=== PATIENT | male | born 1960 | race Caucasian/White ===

== ENCOUNTER 2016-09-20 11:14 | Observation (INO) ==
[2016-09-20] MEDS ORDERED: *HR* Morphine 2 MG/ML SYRINGE IVP ONE (12:18)
[2016-09-20] MEDS ORDERED: Ondansetron 4 MG/2 ML VIAL IVP ONE (12:18)
[2016-09-20 12:36] LABS: Basophils % 0.3 %; Immature Granulocytes % 0.3 % (0-4)
[2016-09-20 12:38] LABS: Eosinophils # 0.3 K/mcL (0.0-0.6); Eosinophils % 4.3 %; Hematocrit 36.3 % (37.5-50.1); Hemoglobin 11.4 g/dL (12.9-16.9); Immature Platelets 2.6 % (1.1-6.1); Lymphocytes # 1.4 K/mcL (0.6-4.6); Lymphocytes % 23.2 %; Mean Corpuscular HGB Conc 31.4 g/dL (31.6-35.5); Mean Corpuscular Hemoglobin 26.2 pg (28.0-33.3); Mean Corpuscular Volume 83.4 fL (83.0-100.0); Monocytes # 0.6 K/mcL (0.0-1.3); Neutrophils # 3.8 K/mcL (1.6-8.9); Platelet Count 103 K/mcL (140-400); Red Blood Count 4.35 M/mcL (4.19-5.50); Red Cell Distribution Width 15.3 % (11.5-14.5); Segmented Neutrophils % 61.9 %
[2016-09-20 12:40] LABS: INR 1.3; Prothrombin Time 13.7 Seconds (9.4-12.1)
[2016-09-20 12:42] LABS: Activated Partial Thrombo Time 29.7 Seconds (26.0-36.0)
[2016-09-20 12:49] LABS: BUN/Creatinine Ratio 19 (6-26); Blood Urea Nitrogen 16 mg/dL (8-26); Calcium 8.5 mg/dL (8.6-10.8); Carbon Dioxide 27 mEq/L (19-29); Chloride 109 mEq/L (98-109); Glucose 92 mg/dL (70-99); Lipase 158 Units/L (8-78); Osmolality,Calculated 287 (280-300); Potassium 4.5 mEq/L (3.5-4.5); Sodium 138 mEq/L (136-145); eGFR For African Americans > 60 (> 60); eGFR For Non-African Americans > 60 (> 60)
--- NOTE | 2016-09-20 13:16 | Emergency Department Note ---
Disposition Clinical Impression: Chest pain Qualifiers: Chest pain type: other chest pain Qualified Code(s): R07.89 - Other chest pain ; R07.8 - Other chest pain Disposition: Admitted As Inpatient Chest Pain HPI - General Chief Complaint: ED Chest Pain Stated Complaint: Chest issues Time Seen by Provider: 09/20/16 11:19 Source: patient Limitations: no limitations Vital Signs Reviewed: Yes Nursing Notes Reviewed: Yes - History of Present Illness Pt complaint: chest pain Onset (ago): month(s) (2) Duration: intermittent Onset: during rest Pain Location: substernal Severity scale (1-10): 8 Quality: tightness Pain Radiation: none Improves with: nothing Worsens with: nothing Associated symptoms: Denies: nausea, vomiting - Related Data Home Medications Medication Instructions Recorded Confirmed Aspirin [Lo-Dose Aspirin EC] 81 mg PO DAILY 06/14/16 09/20/16 Atorvastatin [Lipitor] 40 mg PO HS 06/14/16 09/20/16 Carvedilol [Coreg] 3.125 mg PO DAILY 06/14/16 09/20/16 Clopidogrel [Plavix] 75 mg PO DAILY 06/14/16 09/20/16 Lisinopril [Zestril] 10 mg PO DAILY 06/14/16 09/20/16 Furosemide [Lasix] 40 mg PO BID 09/13/16 09/20/16 Isosorbide MONOnitrate (24 HR) 30 mg PO DAILY 09/20/16 09/20/16 [Imdur] Potassium Chloride [Klor-Con 10] 10 meq PO BID 09/20/16 09/20/16 Previous Rx's Medication Instructions Recorded Albuterol Sulfate [Albuterol 2 puff IH Q6HR PRN #1 hfa.aer.ad 09/13/16 Inhaler] Allergies Allergy/AdvReac Type Severity Reaction Status Date / Time Penicillins Allergy Hives Verified 06/14/16 10:46 All systems ED: reviewed and negative except as stated. Constitutional: Denies: fever, chills Gastrointestinal: Denies: abdominal pain Chest Pain PMH - Past Medical History Medical history: Reports: COPD, myocardial infarction, renal disease, other Surgical history: Reports: angioplasty/stent, orthopedic, other Psychiatric history: Reports: other - Social History Smoking Status: Never smoker Alcohol use: Reports: none Drug use: Reports: none Physical Exam - General Limitations: no limitations General appearance: alert - Head Head exam: atraumatic, normocephalic, normal inspection - Eye Eye exam: Present: normal appearance, PERRL, EOMI - Expanded Eye Exam Pupils: Left: reactive - ENT ENT exam: normal exam, normal oropharynx, mucous membranes moist - Expanded ENT Exam External ear exam: Present: normal external inspection Mouth exam: Present: normal external inspection Teeth exam: Present: normal inspection Throat exam: Present: normal inspection - Neck Neck exam: Present: normal inspection, full ROM, trachea midline - Chest Chest inspection: Present: normal inspection, symmetric chest wall rise - Respiratory Respiratory exam: Present: normal lung sounds bilaterally - Cardiovascular Cardiovascular exam: Present: regular rate, normal rhythm, normal heart sounds - Abdominal Exam Abdominal exam: Present: soft, Non-Tender. Absent: tenderness, distention, guarding, rebound, rigidity - Extremities Exam Extremities exam: Present: normal inspection, full ROM. Absent: tenderness, pedal edema - Expanded Upper Extremity Exam Shoulder exam: Present: normal inspection, full ROM Arm exam: Present: normal inspection, full ROM Elbow exam: Present: normal inspection, full ROM Forearm/Wrist exam: Present: normal inspection, full ROM Hand exam: Present: normal inspection, full ROM Vascular exam: Normal: capillary refill, radial pulse - Expanded Lower Extremity Exam Hip/Pelvis exam: Present: normal inspection, full ROM Upper leg exam: Present: normal inspection, full ROM Knee exam: Present: normal inspection, full ROM Lower leg exam: Present: normal inspection, full ROM Ankle exam: Present: normal inspection, full ROM Foot/toe exam: Present: normal inspection, full ROM Neurovascular/Tendon exam: Absent: motor deficit, sensory deficit, tendon deficit - Back Exam Back exam: Present: normal inspection, full ROM. Absent: tenderness - Neurological Exam Neurological exam: Present: alert, oriented X3 - Expanded Neurological Exam Patient oriented to: Present: person, place, time Coma Scale Eye Opening: Spontaneous Coma Scale Motor Response: Obeys Commands Coma Scale Verbal Response: Oriented Coma Scale Total: 15 - Psychiatric Psychiatric exam: Present: normal affect, normal mood - Skin Skin exam: Present: warm, dry, intact, normal color Course - Consultations Consultation #1: dr. lópez Time: 14:07 Vital Signs Temperature 98.0 F 09/20/16 11:15 Pulse Rate 73 09/20/16 11:15 Respiratory Rate 18 09/20/16 11:15 Blood Pressure 176/80 09/20/16 11:15 O2 Sat by Pulse Oximetry 98 09/20/16 11:15 Temperature 98.0 F 09/20/16 11:15 Pulse Rate 68 09/20/16 14:31 Respiratory Rate 16 09/20/16 14:50 Blood Pressure 135/80 09/20/16 14:50 O2 Sat by Pulse Oximetry 97 09/20/16 14:31 Oxygen Delivery Oxygen Delivery Room Air Chest Pain - Differential Diagnosis Likely: stable angina, unstable angina pectoris, atypical chest pain, st elevation myocardial infraction, chest pain - Medical Records Medical records reviewed: Yes I reviewed the patient's medical records. - Lab Data Lab results reviewed: Yes I reviewed the patient's lab results. Result diagrams: 09/20/16 12:22 09/20/16 12:22 Lab Results 09/20/16 09/20/16 09/20/16 Range/Units 12:22 12:22 12:22 WBC 6.1 (4.3-11.1) K/mcL RBC 4.35 (4.19-5.50) M/mcL Hgb 11.4 L (12.9-16.9) g/dL Hct 36.3 L (37.5-50.1) % MCV 83.4 (83.0-100.0) fL MCH 26.2 L (28.0-33.3) pg MCHC 31.4 L (31.6-35.5) g/dL RDW 15.3 H (11.5-14.5) % Plt Count 103 L (140-400) K/mcL MPV 10.0 (9.4-12.4) fL Immature Gran % 0.3 (0-4) % Seg Neutrophils % 61.9 % Lymphocytes % 23.2 % Monocytes % 10.0 % Eosinophils % 4.3 % Basophils % 0.3 % Neutrophils # 3.8 (1.6-8.9) K/mcL Lymphocytes # 1.4 (0.6-4.6) K/mcL Monocytes # 0.6 (0.0-1.3) K/mcL Eosinophils # 0.3 (0.0-0.6) K/mcL Basophils # 0.0 (0.0-0.2) K/mcL Immature Plt Fraction 2.6 (1.1-6.1) % PT 13.7 H (9.4-12.1) Seconds INR 1.3 APTT 29.7 (26.0-36.0) Seconds Sodium (136-145) mEq/L Potassium (3.5-4.5) mEq/L Chloride (98-109) mEq/L Carbon Dioxide (19-29) mEq/L BUN (8-26) mg/dL Creatinine (0.72-1.25) mg/dL Est GFR ( Amer) (> 60) Est GFR (Non-Af Amer) (> 60) BUN/Creatinine Ratio (6-26) Glucose (70-99) mg/dL Calculated Osmolality (280-300) Calcium (8.6-10.8) mg/dL Troponin I (0-0.03) ng/mL B-Natriuretic Peptide < 10 (0-100) pg/mL Lipase (8-78) Units/L 09/20/16 09/20/16 Range/Units 12:22 12:22 WBC (4.3-11.1) K/mcL RBC (4.19-5.50) M/mcL Hgb (12.9-16.9) g/dL Hct (37.5-50.1) % MCV (83.0-100.0) fL MCH (28.0-33.3) pg MCHC (31.6-35.5) g/dL RDW (11.5-14.5) % Plt Count (140-400) K/mcL MPV (9.4-12.4) fL Immature Gran % (0-4) % Seg Neutrophils % % Lymphocytes % % Monocytes % % Eosinophils % % Basophils % % Neutrophils # (1.6-8.9) K/mcL Lymphocytes # (0.6-4.6) K/mcL Monocytes # (0.0-1.3) K/mcL Eosinophils # (0.0-0.6) K/mcL Basophils # (0.0-0.2) K/mcL Immature Plt Fraction (1.1-6.1) % PT (9.4-12.1) Seconds INR APTT (26.0-36.0) Seconds Sodium 138 (136-145) mEq/L Potassium 4.5 (3.5-4.5) mEq/L Chloride 109 (98-109) mEq/L Carbon Dioxide 27 (19-29) mEq/L BUN 16 (8-26) mg/dL Creatinine 0.85 (0.72-1.25) mg/dL Est GFR ( Amer) > 60 (> 60) Est GFR (Non-Af Amer) > 60 (> 60) BUN/Creatinine Ratio 19 (6-26) Glucose 92 (70-99) mg/dL Calculated Osmolality 287 (280-300) Calcium 8.5 L (8.6-10.8) mg/dL Troponin I 0.00 (0-0.03) ng/mL B-Natriuretic Peptide (0-100) pg/mL Lipase 158 H (8-78) Units/L - Radiology Data Radiology results reviewed: Yes I reviewed the patient's radiology results. - EKG Data EKG attestation: Yes I reviewed and interpreted this EKG. EKG shows normal: sinus rhythm Rate: normal (68) Rhythm: NSR [place]/QRS: normal Interpretation: no acute changes
[2016-09-20] MEDS ORDERED: Aspirin 81 MG TAB.CHEW PO ONE (14:11)
--- NOTE | 2016-09-20 14:36 | Event Note ---
Date of Encounter: 09/20/16 Time of Encounter: 14:33 1. Chest pain with history of CAD status post multiple stents Last stress test was found to be abnormal and showed possible ischemic defects in the apical inferior wall/apex of the heart. Excision ejection fraction of 70 % Apparently the patient was sent to the ER by his primary care physician after speaking with Dr. Hickman. ER physician contacted Dr. Carballo Continue aspirin, Plavix, monitor troponins, continue telemetry Cardiology consult to decide whether to proceed with cardiac catheterization or not. May obtain prior records of cardiac catheterization from [facility] 2. Mild acute diastolic CHF exacerbation Patient takes 40 mg twice a day of Lasix, used to take 80 twice a day. Start Lasix IV twice a day, strict I's and O's, daily weight 3. Hypertension, stable 4. Hyperlipidemia, stable Omeprazole for GI prophylaxis and Lovenox for DVT prophylaxis. The patient will be admitted for observation. Full code. Time spent on this admission 40 minutes. H&P to be dictated by BRAID FOLDER Jacklyn Mcgee
[2016-09-20] MEDS ORDERED: Furosemide 40 MG/4 ML VIAL IVP SCH (14:45)
[2016-09-20] MEDS ORDERED: Acetaminophen 325 MG TABLET PO PRN (15:00)
[2016-09-20] MEDS ORDERED: Ondansetron 4 MG/2 ML VIAL IVP PRN (15:00)
[2016-09-20] MEDS ORDERED: Naloxone 0.4 MG/ML INJ IVP PRN (15:00)
--- NOTE | 2016-09-20 15:17 | Internal Med History&Physical ---
<Jacklyn Mcgee M - Last Filed: 09/20/16 15:34> Date of Encounter: 09/20/16 Time of Encounter: 15:06 Assessment and Plan (1) Chest pain Current visit: Yes Status: Acute Patient presents with exertional chest pain and dyspnea over the last few months , with abnormal stress test on 08/26. EKG today without ST elevations. troponin 0.00 Cardiology consulted. NPO after midnight for possible LHC continuous cardiac nurse practitioner serial troponins Qualifiers: Chest pain type: chest pain due to myocardial ischemia Ischemic chest pain type: unspecified angina pectoris type Qualified Code(s): I20.9 - Angina pectoris, unspecified (2) Abnormal stress test Current visit: Yes Status: Acute Stress test on 08/26 showed small mmild to moderate intensity reversible perfusion defect in apical inferior wall and apex. LHC was discussed with Dr. Meek as an outpatient, but has not been performed. Cardiology consulted continuous cardiac nurse practitioner serial troponins. (3) CAD (coronary artery disease) Current visit: Yes Status: Acute Patient with known CAD, s/p multiple stent placements. Continue aspirin, plavix , statin. Qualifiers: Coronary Disease-Associated Artery/Lesion type: [place] artery [place] vs. transplanted heart: [place] heart Associated angina: angina presence unspecified Qualified Code(s): I25.10 - Atherosclerotic heart disease of [place] coronary artery without angina pectoris (4) Acute on chronic diastolic (congestive) heart failure Current visit: Yes Status: Acute Patient with BLE edema, he reports is worse than baseline. CXR shows no acute cardiopulmonary disease. BNP < 10. Patient used to take 80mg lasix BID, now takes 40mg BID. Will give 40mg IVP BID. Daily weights, I/Os, cardiac diet. (5) DVT prophylaxis Current visit: Yes Status: Acute Internal Medicine - H&P: HPI Chief complaint: chest pain Admitted From: Emergency Dept Plans for Post Hospital Care: Home History of present illness: Mr. Matias is a 56 year old male with hypertension, hyperlipidemia, COPD, hepatitis C, coronary artery disease status post multiple stent placements presents to the emergency department today with complaints of chest pain. Patient reports that he has been having chest pain, exertional shortness of breath for months now and has had some workup. He did have a stress test on August [address] Carballo which showed a small mild to moderate intensity reversible perfusion deficit defect in the apical inferior wall and apex. At a follow up appointment with Dr. Meek, they discussed LHC, but it has not been scheduled yet. He was at his PCP office this morning, who discussed results and his ongoing symproms with Dr. Hickman of cardiology, and they decided to send him over to the ED. Patient states chest pain radiates to left shoulder, is worse with exertion, and he has some left arm tingling and numbness as well. He denies any lightheadedness, palpitations, fever, chills or sweats. He does report some nausea, headache. Evaluation in the ED included EKG which showed NSR without ST elevation. Troponin was negative at 0.00. BNP was < 10. CXR shows no acute cardiopulmonary disease. On exam, patient is obese, alert and oriented, in no acute distress. Heart has regular rate and rhythm, lungs are clear bilaterally. BLE with edema. Past Med Surg Social Fam HX - Past Medical History Medical history: COPD, coronary artery disease, liver disease (hepatitis C), myocardial infarction, renal disease, other Psychiatric history: other - Past Surgical History Surgical History: angioplasty/stent, orthopedic, other - Social History Smoking Status: Never smoker Smokeless Tobacco Status: No Alcohol use: none Drug use: none - Family History Father Living Status: Age at : 80 Hx Family Cardiac Disorders: Yes Mother Living Status: Still Living Hx Family Cardiac Disorders: Yes Sister Living Status: Still Living Hx Family Cancer: Yes Internal Medicine - H&P: Meds Aspirin [Lo-Dose Aspirin EC] 81 mg PO DAILY 06/14/16 [History] Atorvastatin [Lipitor] 40 mg PO HS 06/14/16 [History] Carvedilol [Coreg] 3.125 mg PO DAILY 06/14/16 [History] Clopidogrel [Plavix] 75 mg PO DAILY 06/14/16 [History] Lisinopril [Zestril] 10 mg PO DAILY 06/14/16 [History] Albuterol Sulfate [Albuterol Inhaler] 2 puff IH Q6HR PRN #1 hfa.aer.ad 09/13/16 [Rx] Furosemide [Lasix] 40 mg PO BID 09/13/16 [History] Isosorbide MONOnitrate (24 HR) [Imdur] 30 mg PO DAILY 09/20/16 [History] Potassium Chloride [Klor-Con 10] 10 meq PO BID 09/20/16 [History] Allergies Penicillins Allergy (Verified 06/14/16 10:46) Hives All Systems PM: A 10-system review of systems was performed and is negative for pertinent findings except as documented above in the HPI. - Constitutional Constitutional: no chills, no fever(s), no night sweats - EENT Eyes: no change in vision, no discharge, no pain, no photophobia Ears: no ear discharge, no ear pain, no tinnitus Nose, mouth and throat: no dysphagia, no nasal discharge, no neck pain, no sore throat - Cardiovascular Cardiovascular ROS IM: chest pain, dyspnea, dyspnea on exertion, edema, no diaphoresis, no lightheadedness, no palpitations, no syncope - Respiratory Respiratory: cough, dyspnea, dyspnea on exertion, no wheezing, no excessive phlegm production - Gastrointestinal Gastrointestinal: nausea, no abdominal pain, no diarrhea, no hematemesis, no hematochezia, no melena, no vomiting - Musculoskeletal Musculoskeletal ROS IM: no numbness, no tingling - Integumentary Integumentary IM: no rash, no unusual bruising - Neurological Neurological ROS: no confusion, no convulsions, no focal weakness, no numbness, no tingling, no tremor(s) - Hematologic/Lymphatic Hematologic/Lymphatic: no easy bruising - Constitutional Vitals: Temp Pulse Resp BP Pulse Ox 98.0 F 68 16 135/80 97 09/20/16 11:15 09/20/16 14:31 09/20/16 14:50 09/20/16 14:50 09/20/16 14:31 General appearance: Present: A&O X 3, morbidly obese, pleasant, no acute distress - Head Head exam: Present: atraumatic, normocephalic - Eye Eye exam: Present: PERRL, conjuntiva pink, sclera anicteric Pupils: Present: PERRL - Neck Neck exam general surgery: Present: supple, trachea midline. Absent: lymphadenopathy - Respiratory Respiratory exam: Present: CTAB. Absent: accessory muscle use, rales, rhonchi, wheezes - Cardiovascular Cardiovascular exam: Present: RRR, +S1, +S2. Absent: diastolic murmur, gallop, rubs, systolic murmur - GI/Abdominal GI/Abdominal exam: Present: normal bowel sounds, soft, no peritoneal signs. Absent: distended, tenderness - Extremities Exam Extremities exam: Present: pedal edema (BLE edema), warm, radial pulses palpable and symetrical. Absent: calf tenderness, cyanotic - Neurological Exam Neurological exam: Present: CN II-XII intact, oriented X3, no focal deficits. Absent: pronater drift, facial droop, speech deficit - Skin Skin exam: Present: dry, intact Internal Med - H&P Results - Labs CBC & Chem 7: 09/20/16 12:22 09/20/16 12:22 Labs: All Lab Results (24 Hours) 09/20/16 09/20/16 09/20/16 Range/Units 12:22 12:22 12:22 WBC 6.1 (4.3-11.1) K/mcL RBC 4.35 (4.19-5.50) M/mcL Hgb 11.4 L (12.9-16.9) g/dL Hct 36.3 L (37.5-50.1) % MCV 83.4 (83.0-100.0) fL MCH 26.2 L (28.0-33.3) pg MCHC 31.4 L (31.6-35.5) g/dL RDW 15.3 H (11.5-14.5) % Plt Count 103 L (140-400) K/mcL MPV 10.0 (9.4-12.4) fL Immature Gran % 0.3 (0-4) % Seg Neutrophils % 61.9 % Lymphocytes % 23.2 % Monocytes % 10.0 % Eosinophils % 4.3 % Basophils % 0.3 % Neutrophils # 3.8 (1.6-8.9) K/mcL Lymphocytes # 1.4 (0.6-4.6) K/mcL Monocytes # 0.6 (0.0-1.3) K/mcL Eosinophils # 0.3 (0.0-0.6) K/mcL Basophils # 0.0 (0.0-0.2) K/mcL Immature Plt Fraction 2.6 (1.1-6.1) % PT 13.7 H (9.4-12.1) Seconds INR 1.3 APTT 29.7 (26.0-36.0) Seconds Sodium (136-145) mEq/L Potassium (3.5-4.5) mEq/L Chloride (98-109) mEq/L Carbon Dioxide (19-29) mEq/L BUN (8-26) mg/dL Creatinine (0.72-1.25) mg/dL Est GFR ( Amer) (> 60) Est GFR (Non-Af Amer) (> 60) BUN/Creatinine Ratio (6-26) Glucose (70-99) mg/dL Calculated Osmolality (280-300) Calcium (8.6-10.8) mg/dL Troponin I (0-0.03) ng/mL B-Natriuretic Peptide < 10 (0-100) pg/mL Lipase (8-78) Units/L 09/20/16 09/20/16 Range/Units 12:22 12:22 WBC (4.3-11.1) K/mcL RBC (4.19-5.50) M/mcL Hgb (12.9-16.9) g/dL Hct (37.5-50.1) % MCV (83.0-100.0) fL MCH (28.0-33.3) pg MCHC (31.6-35.5) g/dL RDW (11.5-14.5) % Plt Count (140-400) K/mcL MPV (9.4-12.4) fL Immature Gran % (0-4) % Seg Neutrophils % % Lymphocytes % % Monocytes % % Eosinophils % % Basophils % % Neutrophils # (1.6-8.9) K/mcL Lymphocytes # (0.6-4.6) K/mcL Monocytes # (0.0-1.3) K/mcL Eosinophils # (0.0-0.6) K/mcL Basophils # (0.0-0.2) K/mcL Immature Plt Fraction (1.1-6.1) % PT (9.4-12.1) Seconds INR APTT (26.0-36.0) Seconds Sodium 138 (136-145) mEq/L Potassium 4.5 (3.5-4.5) mEq/L Chloride 109 (98-109) mEq/L Carbon Dioxide 27 (19-29) mEq/L BUN 16 (8-26) mg/dL Creatinine 0.85 (0.72-1.25) mg/dL Est GFR ( Amer) > 60 (> 60) Est GFR (Non-Af Amer) > 60 (> 60) BUN/Creatinine Ratio 19 (6-26) Glucose 92 (70-99) mg/dL Calculated Osmolality 287 (280-300) Calcium 8.5 L (8.6-10.8) mg/dL Troponin I 0.00 (0-0.03) ng/mL B-Natriuretic Peptide (0-100) pg/mL Lipase 158 H (8-78) Units/L - Diagnostic Studies Chest x-ray Additional comments: Chest X-Ray 09/20/16 11:29 IMPRESSION: No acute cardiopulmonary disease. D/ / Ab Leyva MD / Ab Leyva MD Interpreting Provider: Ab Leyva MD <Pablito Rod H - Last Filed: 09/20/16 17:51> Date of Encounter: 09/20/16 Internal Medicine - H&P: HPI History of present illness: Mr. Matias is a 56 year old male All Systems PM: A 10-system review of systems was performed and is negative for pertinent findings except as documented above in the HPI. - Constitutional Vitals: Temp Pulse Resp BP Pulse Ox 98.0 F 65 15 126/86 97 09/20/16 15:19 09/20/16 15:19 09/20/16 15:19 09/20/16 15:19 09/20/16 15:19 Internal Med - H&P Results - Labs CBC & Chem 7: 09/20/16 12:22 09/20/16 12:22 - Attending Attestation 1. Chest pain with history of CAD status post multiple stents Last stress test was found to be abnormal and showed possible ischemic defects in the apical inferior wall/apex of the heart. Excision ejection fraction of 70 % Apparently the patient was sent to the ER by his primary care physician after speaking with Dr. Hickman. ER physician contacted Dr. Carballo Continue aspirin, Plavix, monitor troponins, continue telemetry Cardiology consult to decide whether to proceed with cardiac catheterization or not. May obtain prior records of cardiac catheterization from [facility] 2. Mild acute diastolic CHF exacerbation Patient takes 40 mg twice a day of Lasix, used to take 80 twice a day. Start Lasix IV twice a day, strict I's and O's, daily weight 3. Hypertension, stable 4. Hyperlipidemia, stable Omeprazole for GI prophylaxis and Lovenox for DVT prophylaxis. The patient will be admitted for observation. Full code. Time spent on this admission 40 minutes. For this encounter, I have reviewed the REGULATORY ASSISTANT or PA documentation, treatment plan, and medical decision making; and I have had face to face time with this patient.
[2016-09-20] MEDS: Furosemide 40 MG/4 ML VIAL IVP SCH (16:14)
--- NOTE | 2016-09-20 18:10 | Electrocardiograph Report ---
[address] [address] Test Date: 2016-09-20 Pat Name: Mal Matias Department: [id number] Room: 3B Gender: M [employer]: HARRIS : 1960 Requested By: Clark Oseguera Order Number: [id number] Reading MD: Adele Hickman Measurements Intervals [place] Rate: 68 P: 56 WV: 157 QRS: 71 QRSD: 90 T: 39 QT: 367 QTc: 384 Interpretive Statements SINUS RHYTHM Electronically Signed On 09-20-2016 18:09:13 EDT by Adele Hickman
[2016-09-21 01:22] LABS: Basophils % 0.2 %; Eosinophils # 0.2 K/mcL (0.0-0.6); Eosinophils % 3.6 %; Hematocrit 36.8 % (37.5-50.1); Hemoglobin 11.6 g/dL (12.9-16.9); Immature Granulocytes % 0.2 % (0-4); Lymphocytes # 1.5 K/mcL (0.6-4.6); Lymphocytes % 26.7 %; Mean Corpuscular HGB Conc 31.5 g/dL (31.6-35.5); Mean Corpuscular Hemoglobin 25.9 pg (28.0-33.3); Mean Corpuscular Volume 82.1 fL (83.0-100.0); Mean Platelet Volume 10.3 fL (9.4-12.4); Monocytes # 0.6 K/mcL (0.0-1.3); Monocytes % 9.9 %; Neutrophils # 3.3 K/mcL (1.6-8.9); Red Blood Count 4.48 M/mcL (4.19-5.50); Red Cell Distribution Width 15.1 % (11.5-14.5); Segmented Neutrophils % 59.4 %
[2016-09-21 01:24] LABS: Platelet Count 97 K/mcL (140-400)
[2016-09-21 01:33] LABS: BUN/Creatinine Ratio 16 (6-26); Blood Urea Nitrogen 16 mg/dL (8-26); Carbon Dioxide 24 mEq/L (19-29); Chloride 108 mEq/L (98-109); Potassium 4.3 mEq/L (3.5-4.5); Sodium 138 mEq/L (136-145); eGFR For African Americans > 60 (> 60)
[2016-09-21 01:34] LABS: Calcium 8.4 mg/dL (8.6-10.8); Glucose 80 mg/dL (70-99); Osmolality,Calculated 286 (280-300); eGFR For Non-African Americans > 60 (> 60)
[2016-09-21] MEDS: *HR* Enoxaparin 40 MG/0.4 ML SYRINGE SQ SCH (05:49)
[2016-09-21] MEDS: Furosemide 40 MG/4 ML VIAL IVP SCH ×2 (08:18→16:49)
[2016-09-21] MEDS: Aspirin Enteric Coated 81 MG Tablet PO SCH (08:19)
[2016-09-21] MEDS: *HR* Morphine 2 MG/ML SYRINGE IVP PRN ×2 (08:25→21:12)
[2016-09-21] MEDS ORDERED: Isosorbide MONOnitrate (24 HR) 30 MG TAB.ER.24H PO SCH (09:00)
--- NOTE | 2016-09-21 10:32 | Cardiology Consult Note ---
Date of Encounter: 09/21/16 Time of Encounter: 10:14 Assessment and Plan (1) Chest pain Current Visit: Yes Status: Acute Presents with worsening chest pain over recent months, worsening dyspnea on exertion. Nuclear stress test 08/26/16 showed gated LVEF >70%. This is a small sized, mild- moderate intensity, reversible perfusion defect in the apical inferior wall and apex. Findings are consistent with reversible myocardial ischemia. However, this correlates with known CARBON BLOCKS PRESS OPERATOR of RCA on [facility] 06/2015 at [facility]. Aside from CTA there was otherwise mild disease with 30% stenosis in LAD, LCx, 1st diag. Previous stent prox D1 widely patent. Troponins negative x 3. No EKG changes. Would recommend medical management given known CARBON BLOCKS PRESS OPERATOR without significant disease otherwise on [facility] ~1 year ago. On Imdur 30mg daily. Increase to 60mg daily and add Ranexa 500mg BID. Echo 07/2016 EF preserved with moderate diastolic dysfunction. Anticipate sign off once seen and evaluated by Dr. Carballo. Qualifiers: Chest pain type: chest pain due to myocardial ischemia Ischemic chest pain type: unspecified angina pectoris type Qualified Code(s): I20.9 - Angina pectoris, unspecified (2) Chronic diastolic (congestive) heart failure Current Visit: Yes Status: Chronic Echo 07/2016 EF preserved with moderate diastolic dysfunction. Pt reports worsening dyspnea and lower extremity edema, but BNP <10 and CXR negative. No evidence of acute exacerbation. Continue Lasix, recommend lifestyle modification, Na and fluid restriction. Symptoms could be secondary to his hepatitis diagnosis. AST 77 and ALT 100 on . I do not see any recent liver US. Defer to primary team. (3) CAD (coronary artery disease) Current Visit: Yes Status: Chronic Known CAD with hx of PCI and PTCA. [facility] 06/2015 at [facility]: Severe double vessel CAD, previous stent prox D1 widely patent. CARBON BLOCKS PRESS OPERATOR of RCA with distal vessel filled by collaterals from RCA. Otherwise mild disease with 30% stenosis in LAD , LCx, 1st diag. ASA, Plavix, Statin, BB. Increase Imdur to 60mg daily and add Ranexa 500mg BID. Qualifiers: Coronary Disease-Associated Artery/Lesion type: [place] artery [place] vs. transplanted heart: [place] heart Associated angina: angina presence unspecified Qualified Code(s): I25.10 - Atherosclerotic heart disease of [place] coronary artery without angina pectoris Discussion w patient/family: The assessment and plan as outlined above was discussed with the patient and/or family members who expressed understanding and agreement. All questions were answered. Thank you for involving us in the care of your patient. Please call with any questions. I will discuss all the above with Dr. Carballo and make changes as necessary. History of Present Illness Consult date: 09/21/16 Requesting physician: Pablito Rod Consult reason: Chest pain Chief complaint: chest pain, dyspnea, lower extremity edema History of present illness: Mr. Matias is a 56 year old male with PMH of CAD s/p multiple stents and PTCA, HTN, HLD, COPD, hepatitis C, that presented to the ED yesterday with complaints of chest pain, described as heaviness and pressure with left arm numbness. Patient reports that he has been having chest pain, exertional dyspnea for months now and has continued to worsen. He reports vomiting and hemoptysis. He had a stress test on 08/26/[address] Carballo which showed a small mild to moderate intensity reversible perfusion deficit defect in the apical inferior wall and apex. It correlates with known CARBON BLOCKS PRESS OPERATOR of RCA on [facility] 06/2015 at [facility], so medical management was recommended. Imdur was started at 30mg daily, which pt reports has not seemed to help. Troponins negative x 3. CXR negative, BNP <10. Cardiology consulted for further recommendations. Prior CV testing: Nuclear stress test 08/26/16: Gated LVEF >70%. This is a small sized, mild- moderate intensity, reversible perfusion defect in the apical inferior wall and apex. Findings are consistent with reversible myocardial ischemia. TTE 08/26/16: LVEF 60%, moderate LVDD. No significant valvular dysfunction. [facility] 06/2015 at [facility]: Severe double vessel CAD, previous stent prox D1 widely patent. CARBON BLOCKS PRESS OPERATOR of RCA with distal vessel filled by collaterals from RCA. Otherwise mild disease with 30% stenosis in LAD, LCx, 1st diag. Past Med Surg Social Fam HX - Past Medical History Medical history: cancer, COPD, coronary artery disease, liver disease, myocardial infarction, renal disease, other Psychiatric history: other - Past Surgical History Surgical History: angioplasty/stent, orthopedic, other - Social History Smoking Status: Never smoker Smokeless Tobacco Status: No Alcohol use: none Drug use: none - Family History Father Living Status: Age at : 80 Cause of : [place] Hx Family Cardiac Disorders: Yes Mother Living Status: Still Living Hx Family Cardiac Disorders: Yes Sister Living Status: Still Living Hx Family Cardiac Disorders: Yes Hx Family Cancer: Yes Medications and Allergies Aspirin [Lo-Dose Aspirin EC] 81 mg PO DAILY 06/14/16 [History] Atorvastatin [Lipitor] 40 mg PO HS 06/14/16 [History] Carvedilol [Coreg] 3.125 mg PO DAILY 06/14/16 [History] Clopidogrel [Plavix] 75 mg PO DAILY 06/14/16 [History] Lisinopril [Zestril] 10 mg PO DAILY 06/14/16 [History] Albuterol Sulfate [Albuterol Inhaler] 2 puff IH Q6HR PRN #1 hfa.aer.ad 09/13/16 [Rx] Furosemide [Lasix] 40 mg PO BID 09/13/16 [History] Isosorbide MONOnitrate (24 HR) [Imdur] 30 mg PO DAILY 09/20/16 [History] Potassium Chloride [Klor-Con 10] 10 meq PO BID 09/20/16 [History] Allergies Penicillins Allergy (Verified 06/14/16 10:46) Hives All Systems Review: A 10-system review of systems was performed and is negative for pertinent findings except as documented above in the HPI. - Cardiovascular Cardiovascular: as per HPI, chest pain at rest, chest pain with exertion, dyspnea at rest, dyspnea on exertion, radiating jaw, neck or arm pain, leg edema - Respiratory Respiratory: dyspnea, hemoptysis Physical Examination Vital Signs, Last 4 Hours Temp Pulse Resp BP Pulse Ox 09/21/16 07:47 97.6 F 78 14 119/70 92 General: Conversant, No Apparent Distress HEENT: Atraumatic, Normocephaly, Mucus Membranes Moist Neck: No JVD, Normal carotid pulses Cardiac: Reg Rate and Rhythm, Normal S1 and S2, No Murmur Lungs: Normal Breath Sounds, No Wheeze, Rales, Rhonchi Neuro: Alert and responsive, No focal deficits noted Abdomen: Soft, Non-Tender Skin: No rashes noted on visualized skin Musculoskeletal: No Chest Wall Tenderness Extremities: Other (mild BLE edema) Results 09/21/16 00:55 09/21/16 00:55 Lab Results 09/20/16 09/21/16 09/21/16 17:46 00:55 00:55 WBC 5.6 Hgb 11.6 L Hct 36.8 L Plt Count 97 L Sodium Potassium Chloride Carbon Dioxide BUN Creatinine Glucose Calcium Troponin I 0.00 0.00 09/21/16 00:55 WBC Hgb Hct Plt Count Sodium 138 Potassium 4.3 Chloride 108 Carbon Dioxide 24 BUN 16 Creatinine 1.00 Glucose 80 Calcium 8.4 L Troponin I Short CBC 09/21/16 09/20/16 Range/Units 00:55 12:22 WBC 5.6 6.1 (4.3-11.1) K/mcL Hgb 11.6 L 11.4 L (12.9-16.9) g/dL Hct 36.8 L 36.3 L (37.5-50.1) % Plt Count 97 L 103 L (140-400) K/mcL Neutrophils # 3.3 3.8 (1.6-8.9) K/mcL BMP 09/21/16 09/20/16 Range/Units 00:55 12:22 Sodium 138 138 (136-145) mEq/L Potassium 4.3 4.5 (3.5-4.5) mEq/L Chloride 108 109 (98-109) mEq/L Carbon Dioxide 24 27 (19-29) mEq/L BUN 16 16 (8-26) mg/dL Creatinine 1.00 0.85 (0.72-1.25) mg/dL Glucose 80 92 (70-99) mg/dL Calcium 8.4 L 8.5 L (8.6-10.8) mg/dL Cardiac Enzymes 09/21/16 09/20/16 09/20/16 Range/Units 00:55 17:46 12:22 Troponin I 0.00 0.00 0.00 (0-0.03) ng/mL Impressions Chest X-Ray 09/20/16 11:29 IMPRESSION: No acute cardiopulmonary disease. D/ / Ab Leyva MD / Ab Leyva MD Interpreting Provider: Ab Leyva MD Active Medications Acetaminophen (Tylenol) 650 mg PO Q6HR PRN PRN Reason: Mild Pain (1-3) Stop: 03/22/17 15:01 Aspirin (Aspirin Ec) 81 mg PO DAILY [facility] Stop: 03/23/17 09:01 Last Admin: 09/21/16 08:19 Dose: 81 mg Atorvastatin Calcium (Lipitor) 40 mg PO HS [facility] Stop: 03/22/17 21:01 Last Admin: 09/20/16 20:33 Dose: 40 mg Carvedilol (Coreg) 3.125 mg PO DAILY [facility] PRN Reason: Protocol Stop: 03/23/17 09:01 Last Admin: 09/21/16 08:19 Dose: 3.125 mg Clopidogrel Bisulfate (Plavix) 75 mg PO DAILY [facility] Stop: 03/23/17 09:01 Last Admin: 09/21/16 08:19 Dose: 75 mg Enoxaparin Sodium (Lovenox) 40 mg SQ 0700 [facility] PRN Reason: Protocol Stop: 03/23/17 07:01 Last Admin: 09/21/16 05:49 Dose: 40 mg Furosemide (Lasix) 40 mg IVP BIDDIURETIC [facility] Stop: 03/22/17 14:46 Last Admin: 09/21/16 08:18 Dose: 40 mg Isosorbide Mononitrate (Imdur) 30 mg PO DAILY [facility] Stop: 03/23/17 09:01 Last Admin: 09/21/16 08:19 Dose: 30 mg Lisinopril (Zestril) 10 mg PO DAILY [facility] PRN Reason: Protocol Stop: 03/23/17 09:01 Last Admin: 09/21/16 08:18 Dose: 10 mg Morphine Sulfate (Morphine Sulfate) 2 mg IVP Q4HR PRN PRN Reason: Severe Pain (7-10) Stop: 03/22/17 15:01 Last Admin: 09/21/16 08:25 Dose: 2 mg Naloxone HCl (Narcan) 0.4 mg IVP Q2MIN PRN PRN Reason: Opioid Reversal Stop: 03/22/17 15:01 Omeprazole (Prilosec) 20 mg PO DAILY@0630 [facility] PRN Reason: Protocol Stop: 03/23/17 06:31 Last Admin: 09/21/16 05:49 Dose: 20 mg Ondansetron HCl (Zofran) 4 mg IVP Q8HR PRN PRN Reason: Nausea And Vomiting Stop: 03/22/17 15:01 Potassium Chloride (Potassium Chloride) 10 meq PO BID [facility] Stop: 03/22/17 21:01 Last Admin: 09/21/16 08:18 Dose: 10 meq - Imaging and Cardiology Stress Test: report reviewed Echo: report reviewed Cardiac cath: report reviewed - EKG Interpretation EKG results cardiology: personally reviewed (SR), other (12 hr tele AVG HR 74, SR, no significant pauses or arrhythmias) Consult Discharge Plan - Plan Referrals: Yeimi Rodriguez, FINANCIAL INSTITUTION TREASURER [Primary Care Provider] -
[2016-09-21] MEDS ORDERED: Isosorbide MONOnitrate (24 HR) 30 MG TAB.ER.24H PO ONE (10:45)
[2016-09-21] MEDS: Ranolazine 500 MG TAB.ER.12H PO SCH ×2 (12:28→21:09)
--- NOTE | 2016-09-21 17:38 | Internal Med Progress Note ---
Date of Encounter: 09/21/16 Time of Encounter: 14:00 - Assessment and plan (1) Chest pain Current Visit: Yes Status: Acute Assessment and plan: Patient stating his chest pain has not improved since admission. Chest x-ray negative. Seen and evaluated by cardiology who surmised that the abnormality seen in his stress test from 08/26/16 was correlated to his known BONE CHAR KILN TENDER of his RCA. Cardiology is recommended medical management with increase of his Imdur dosage and with the addition of Ranexa to his regimen. We will observe the patient overnight on these new medications and new dosages. Likely discharge tomorrow pending clinical outcomes. ITS Impressions Chest X-Ray 09/20/16 11:29 IMPRESSION: No acute cardiopulmonary disease. D/ / Ab Leyva MD / Ab Leyva MD Interpreting Provider: Ab Leyva MD Qualifiers: Chest pain type: chest pain due to myocardial ischemia Ischemic chest pain type: unspecified angina pectoris type Qualified Code(s): I20.9 - Angina pectoris, unspecified (2) Abnormal stress test Current Visit: Yes Status: Ruled-out Assessment and plan: Per cardiology, abnormality seen and stress test is consistent with patient's known BONE CHAR KILN TENDER of RCA. Medical management with increased Imdur in addition of ranexa per cardiology (3) Chronic diastolic (congestive) heart failure Current Visit: Yes Status: Chronic Assessment and plan: Appears euvolemic on examination. No pedal edema. Patient denies shortness of breath above his norm. Chronic diastolic heart failure with preserved ejection fraction without acute exacerbation. (4) CAD (coronary artery disease) Current Visit: Yes Status: Chronic Qualifiers: Coronary Disease-Associated Artery/Lesion type: [place] artery [place] vs. transplanted heart: [place] heart Associated angina: angina presence unspecified Qualified Code(s): I25.10 - Atherosclerotic heart disease of [place] coronary artery without angina pectoris (5) COPD (chronic obstructive pulmonary disease) Current Visit: Yes Status: Chronic Assessment and plan: No acute exacerbation. Patient is tolerating room air well. Denies shortness of breath above his norm. Chest x-ray negative. Qualifiers: COPD type: unspecified COPD Qualified Code(s): J44.9 - Chronic obstructive pulmonary disease, unspecified (6) DVT prophylaxis Current Visit: Yes Status: Acute Assessment and plan: Subcutaneous Lovenox (7) Morbid obesity with BMI of 45.0-49.9, adult Current Visit: Yes Status: Chronic (8) Recovering alcoholic Current Visit: Yes Status: Chronic - Subjective Interval history: Patient seen and examined. On examination, patient sitting upright in bed watching television. Patient stating he does not feel any better. He continues to endorse chest pressure and chest pain. He states he has poor appetite at this time mostly because he states he does not like our food. - Constitutional Vitals: Temp Pulse Resp BP Pulse Ox 97.9 F 73 14 93/56 95 09/21/16 15:48 09/21/16 15:48 09/21/16 15:48 09/21/16 15:48 09/21/16 15:48 General appearance: Present: A&O X 3, morbidly obese, pleasant, no acute distress, answers questions appropriately - Head Head exam: Present: atraumatic, normocephalic - Eye Eye exam: Present: PERRL, conjuntiva pink, sclera anicteric Pupils: Present: PERRL - Neck Neck exam general surgery: Present: supple, trachea midline. Absent: lymphadenopathy - Respiratory Respiratory exam: Present: decreased breath sounds. Absent: accessory muscle use, rales, respiratory distress, rhonchi, wheezes - Cardiovascular Cardiovascular exam: Present: RRR, +S1, +S2. Absent: diastolic murmur, gallop, rubs, systolic murmur - GI/Abdominal GI/Abdominal exam: Present: distended, normal bowel sounds, soft, no peritoneal signs. Absent: tenderness - Extremities Exam Extremities exam: Present: warm, radial pulses palpable and symetrical. Absent : calf tenderness, cyanotic, pedal edema - Neurological Exam Neurological exam: Present: alert, CN II-XII intact, oriented X3, no focal deficits, strengths equal and symetr throughout. Absent: pronater drift, facial droop, speech deficit - Skin Skin exam: Present: dry, intact, pallor, warm Internal Medicine: Result - Labs CBC & Chem 7: 09/21/16 00:55 09/21/16 00:55 Labs: Short CBC 09/21/16 Range/Units 00:55 WBC 5.6 (4.3-11.1) K/mcL Hgb 11.6 L (12.9-16.9) g/dL Hct 36.8 L (37.5-50.1) % Plt Count 97 L (140-400) K/mcL Neutrophils # 3.3 (1.6-8.9) K/mcL BMP 09/21/16 00:55 Sodium 138 Potassium 4.3 Chloride 108 Carbon Dioxide 24 BUN 16 Creatinine 1.00 Glucose 80 Calcium 8.4 L Cardiac Enzymes 09/20/16 09/21/16 Range/Units 17:46 00:55 Troponin I 0.00 0.00 (0-0.03) ng/mL - ABG Interpretation ABG results: PT/INR, D-dimer PT 13.7 Seconds (9.4-12.1) H 09/20/16 12:22 Consult Discharge Plan - Plan Referrals: Yeimi Rodriguez, SHEARING MACHINE OPERATOR [Primary Care Provider] -
[2016-09-22] MEDS: *HR* Enoxaparin 40 MG/0.4 ML SYRINGE SQ SCH (06:42)
[2016-09-22 06:46] LABS: Albumin 2.9 g/dL (3.5-5.0); Albumin/Globulin Ratio 0.8 (1.1-2.2); Bilirubin,Direct 0.3 mg/dL (0.0-0.5); Bilirubin,Indirect 0.4 mg/dL (0.0-1.2); Bilirubin,Total 0.7 mg/dL (0.2-1.2); Globulin 3.5 g/dL (2.4-3.5); Total Protein 6.4 g/dL (6.0-8.3)
[2016-09-22] MEDS ORDERED: Isosorbide MONOnitrate (24 HR) 60 MG TAB.ER.24H PO SCH (09:00)
[2016-09-22] MEDS: Aspirin Enteric Coated 81 MG Tablet PO SCH (09:13)
[2016-09-22] MEDS: Ranolazine 500 MG TAB.ER.12H PO SCH (09:14)
[2016-09-22] MEDS: Furosemide 40 MG/4 ML VIAL IVP SCH (09:14)
[2016-09-22] MEDS: *HR* Morphine 2 MG/ML SYRINGE IVP PRN (09:23)
[2016-09-22 11:38] VITALS: BP 109/69
--- NOTE | 2016-09-22 12:47 | Discharge Summary ---
Date of Encounter: 09/22/16 Time of Encounter: 10:30 - Discharge Diagnosis (1) Chest pain Priority: Primary Status: Acute Comments: Patient stating his chest pain minimally improved with medication changes. Chest x-ray negative. Seen and evaluated by cardiology who surmised that the abnormality seen in his stress test from 08/26/16 was correlated to his known ENGINEERING TECHNICIAN PARKING of his RCA. Cardiology is recommended medical management with increase of his Imdur dosage and with the addition of Ranexa to his regimen. Qualifiers: Chest pain type: chest pain due to myocardial ischemia Ischemic chest pain type: unspecified angina pectoris type Qualified Code(s): I20.9 - Angina pectoris, unspecified (2) Abnormal stress test Priority: Primary Status: Ruled-out (3) Chronic diastolic (congestive) heart failure Priority: Secondary Status: Chronic Comments: Appears euvolemic on examination. No pedal edema. Patient denies shortness of breath above his norm. Chronic diastolic heart failure with preserved ejection fraction without acute exacerbation. (4) CAD (coronary artery disease) Priority: Secondary Status: Chronic Qualifiers: Coronary Disease-Associated Artery/Lesion type: [place] artery [place] vs. transplanted heart: [place] heart Associated angina: angina presence unspecified Qualified Code(s): I25.10 - Atherosclerotic heart disease of [place] coronary artery without angina pectoris (5) COPD (chronic obstructive pulmonary disease) Priority: Secondary Status: Chronic Comments: No acute exacerbation. Patient is tolerating room air well. Denies shortness of breath above his norm. Chest x-ray negative. Qualifiers: COPD type: unspecified COPD Qualified Code(s): J44.9 - Chronic obstructive pulmonary disease, unspecified (6) DVT prophylaxis Priority: Primary Status: Acute Comments: Subcutaneous Lovenox while admitted (7) Morbid obesity with BMI of 45.0-49.9, adult Priority: Secondary Status: Chronic (8) Recovering alcoholic Priority: Secondary Status: Chronic Comments: endorsing continued abstinence - Discharge Medications Prescriptions: Isosorbide MONOnitrate (24 HR) [Imdur] 60 mg PO DAILY #30 Ranolazine [Ranexa] 500 mg PO BID #60 Home Medications: Aspirin [Lo-Dose Aspirin EC] 81 mg PO DAILY 06/14/16 [History] Atorvastatin [Lipitor] 40 mg PO HS 06/14/16 [History] Carvedilol [Coreg] 3.125 mg PO DAILY 06/14/16 [History] Clopidogrel [Plavix] 75 mg PO DAILY 06/14/16 [History] Lisinopril [Zestril] 10 mg PO DAILY 06/14/16 [History] Albuterol Sulfate [Albuterol Inhaler] 2 puff IH Q6HR PRN #1 hfa.aer.ad 09/13/16 [Rx] Furosemide [Lasix] 40 mg PO BID 09/13/16 [History] Potassium Chloride [Klor-Con 10] 10 meq PO BID 09/20/16 [History] Isosorbide MONOnitrate (24 HR) [Imdur] 60 mg PO DAILY #30 09/22/16 [Rx] Ranolazine [Ranexa] 500 mg PO BID #60 09/22/16 [Rx] Allergies/Adverse Reactions: Allergies Penicillins Allergy (Verified 06/14/16 10:46) Hives Date of admission: 09/20/16 14:27 Primary care physician: Yeimi Rodriguez Consults: 09/20/16 14:06 Consult to Cardiology [CONS] Routine Comment: Consulting Provider: Cardiology [place] Reason for Consult: chest pain Call Completed: Yes Discharging clinician: Jordana Daniel Anticipated date of discharge: 09/22/16 - Patient Status Disposition: Home, Self-Care Condition: Fair Functional capacity at discharge: independent ambulation Overall status at discharge: patient is back to baseline - Discharge Instructions Follow Up With: Yeimi Rodriguez, RACHEL [Primary Care Provider] - Nikos Carballo DO [Partnered Physician] - Additional Instructions: Follow-up with primary care provider within one to 2 weeks, follow-up with cardiology within 1-2 weeks - Diet and Activity Activity: increase activity as tolerated Diet: low fat, low cholesterol, low salt diet Hospital course: Mr. Matias is a 56 year old male with past medical history of CAD status post multiple stents, hypertension, hyperlipidemia, COPD, hepatitis C, former alcohol abuse, diastolic heart failure, morbid obesity. Patient presented to the emergency department chief complaint of chest pain, exertional shortness of breath for several months. He had a stress test on 08/26/[address] Carballo that was reportedly abnormal. At his follow-up appointment with cardiology, they discussed possible left heart catheter then when he followed up with his primary care provider, he was sent to the emergency department. Patient stating his chest pain radiates to his left shoulder, is worse with exertion, and he also has left arm tingling and numbness. Patient denied lightheadedness , palpitations, fever, chills or sweats. Patient also endorses nausea but no vomiting, and chronic headache. Workup in the emergency department unremarkable. No acute ECG changes. Troponin negative. BNP negative. Chest x -ray without acute processes. Patient was admitted to the hospitalist service for further evaluation and management. Cardiology was brought on board who surmised that the abnormality seen in the stress test from 08/26/16 was correlated to his known ENGINEERING TECHNICIAN PARKING of his RCA. Cardiology subsequently recommended medical management with increase in his Imdur and with the addition of Ranexa to his regimen. Patient was observed overnight with these new medications and tolerated them well. On day of discharge, his chest pain was still present but had lessened slightly. He tolerated a regular diet while admitted. He was euvolemic on examination at time of discharge. He was discharged home in stable condition with close outpatient follow-up recommended. ITS Impressions Chest X-Ray 09/20/16 11:29 IMPRESSION: No acute cardiopulmonary disease. D/ / Ab Leyva MD / Ab Leyva MD Interpreting Provider: Ab Leyva MD - Time Spent with Patient Total time spent providing and/or coordinating discharge services: - Constitutional Vitals: Temp Pulse Resp BP Pulse Ox 98.2 F 81 16 109/69 96 09/22/16 11:31 09/22/16 11:31 09/22/16 11:31 09/22/16 11:31 09/22/16 11:31 General appearance: Present: A&O X 3, morbidly obese, pleasant, no acute distress, answers questions appropriately - Head Head exam: Present: atraumatic, normocephalic - Eye Eye exam: Present: PERRL, conjuntiva pink, sclera anicteric Pupils: Present: PERRL - Neck Neck exam general surgery: Present: supple, trachea midline. Absent: lymphadenopathy - Respiratory Respiratory exam: Present: decreased breath sounds. Absent: accessory muscle use, rales, respiratory distress, rhonchi, wheezes - Cardiovascular Cardiovascular exam: Present: RRR, +S1, +S2. Absent: diastolic murmur, gallop, rubs, systolic murmur - GI/Abdominal GI/Abdominal exam: Present: normal bowel sounds, soft, no peritoneal signs. Absent: distended, tenderness - Extremities Exam Extremities exam: Present: warm, radial pulses palpable and symetrical. Absent : calf tenderness, cyanotic, pedal edema - Neurological Exam Neurological exam: Present: alert, CN II-XII intact, normal gait, oriented X3, no focal deficits, strengths equal and symetr throughout. Absent: pronater drift, facial droop, speech deficit - Skin Skin exam: Present: dry, intact, normal color, warm - VTE Documentation of Mechanical Device: Graduated compression elastic hosiery
== END 2016-09-22 14:53 | disposition home or self-care (01) ==
LOC: 3BNU 11:14 → EMEROO 11:14 → 3BNU 14:59
PROVIDERS: ADMIT Internal Medicine; ATTEND Nurse Practitioner Family